=== PATIENT | female | born 1950 | race Caucasian/White ===

== ENCOUNTER → 2017-09-26 14:12 | Day surgery (SDC) | payer MEDICARE, MEDICAID, SELFPAY ==
--- NOTE | 2017-09-26 | PATH_ITS ---
[facility] Accession Number: [id number] . 01 Material submitted: . PART A: SUB-MUCOSAL MASS ASCENDING COLON PART B: SUB-MUCOSAL LESION AT 60CM PART C: POLYP AT 30CM . 02 Diagnosis: A. Ascending Colon, Biopsy: Sessile serrated adenoma. . B. Colon at 60 cm, Biopsy: Hyperplastic polyp. . C. Colon Polyp at 30 cm: Tubulovillous adenoma. MRV/09/30/2017 . 02 Electronically signed: . Chaim Montana MD, PhD, Pathologist NPI- [id number] . 01 Gross description: . Received are three formalin-filled containers, each labeled with the patient's name: . A. In a container labeled submucosal mass ascending colon, the specimen consists of three less than 0.1 cm to 0.3 cm portions of tissue, entirely submitted in cassette A. B. In a container labeled submucosal lesion at 60 cm, the specimen consists of two 0.2-0.3 cm portions of tissue, entirely submitted in cassette B. C. In a container labeled polyp at 30 cm, the specimen consists of a 0.6 x 0.6 x 1.2 cm portion of tissue, which is bisected and totally submitted in cassette C. ([id number]) /FRR . 02 Pathologist provided ICD-10: D12.2, D12.6, K63.5 . 02 CPT . 197027, 388482, [id number] Performed at: 01 [facility] [address] [facility], [place], [place] [id number] MD Feliciano Jones MD Phone: [phone] Performed at: 02 [facility] [address] [place] [id number] MD Antony Hopkins MD Phone: [phone]
[2017-09-26 14:15] VITALS: BP 113/74; PULSE 95; RESP 16; TEMP 36.3; O2SAT 97
[2017-09-26] MEDS: SODIUM CHLORIDE 0.9% 1,000 ML 200 ML IV (14:45)
--- NOTE | 2017-09-26 15:30 | PM.HP.1 ---
History of Present Illness Chief complaint: [id number] Narrative: Jeaneth Dixon is a 66 year old female She is here for screening colonoscopy. She has never had a screening colonoscopy. No family history colon cancer. [facility] Surgical History History of third molar tooth extraction Meds Home Medications Medication Instructions Recorded Confirmed Type GABAdone 1 mg PO QDAY 09/26/17 09/26/17 History Generic Name Dose Route Start Last Admin Trade Name Freq PRN Reason Stop Dose Admin Flumazenil 0.2 mg 09/25/17 17:11 Romazicon IV PRN PRN Benzodiazepine Reversal Sodium Chloride 1,000 mls @ 200 mls/hr 09/25/17 17:15 Normal Saline 0.9% IV CONT LUCIUS Naloxone HCl 0.2 mg 09/25/17 17:11 Narcan IV Q2MIN PRN Opiate Reversal Allergies Allergy/AdvReac Type Severity Reaction Status Date / Time duloxetine [From CYMBALTA] AdvReac Severe PANIC Verified 09/26/17 14:58 ATTACK AND HIGH ANXIETY Review of Systems Review of Systems All systems reviewed & are unremarkable except as noted in HPI and below Musculoskeletal Comments: Spinal arthritis Exam Vital Signs (past 8 hours): Vital Signs - 8 hr 09/26/17 14:15 Temperature 97.3 F L Pulse Rate 95 H Respiratory Rate 16 Blood Pressure 113/74 Pulse Oximetry 97 Pulse Oximetry 97 Oxygen Delivery Method Room Air Narrative Exam Narrative: Operative no apparent distress lungs are clear heart regular rate and rhythm without murmur or gallop abdomen is soft nontender without masses alert and oriented x3. Assessment & Plan Plan: Plan: I have discussed the procedure and the rationale with the patient including risks of bleeding, perforation which would necessitate a major operation, failure to find remove all lesions and the potential to tattoo. They appeared to understand and wished to proceed.
--- NOTE | 2017-09-26 15:31 | PM.PREOP ---
Pre-operative Note Interval Note Pre-op Check: History & Physical exam performed today H&P completed within 30 days and has changed as indicated here:: No change ASA Class (for procedural sedation): I
--- NOTE | 2017-09-26 16:12 | PM.HP.1 ---
History of Present Illness Chief complaint: [id number] Narrative: Jeaneth Dixon is a 66 year old female [facility] Surgical History History of third molar tooth extraction Meds Home Medications Medication Instructions Recorded Confirmed Type GABAdone 1 mg PO QDAY 09/26/17 09/26/17 History Generic Name Dose Route Start Last Admin Trade Name Freq PRN Reason Stop Dose Admin Flumazenil 0.2 mg 09/25/17 17:11 Romazicon IV PRN PRN Benzodiazepine Reversal Sodium Chloride 1,000 mls @ 200 mls/hr 09/25/17 17:15 Normal Saline 0.9% IV CONT LUCIUS Naloxone HCl 0.2 mg 09/25/17 17:11 Narcan IV Q2MIN PRN Opiate Reversal Allergies Allergy/AdvReac Type Severity Reaction Status Date / Time duloxetine [From CYMBALTA] AdvReac Severe PANIC Verified 09/26/17 14:58 ATTACK AND HIGH ANXIETY Exam Vital Signs (past 8 hours): Vital Signs - 8 hr 09/26/17 14:15 Temperature 97.3 F L Pulse Rate 95 H Respiratory Rate 16 Blood Pressure 113/74 Pulse Oximetry 97 Pulse Oximetry 97 Oxygen Delivery Method Room Air
--- NOTE | 2017-09-26 16:12 | PM.OP.ENDO ---
Operative Date/Time/Diagnoses - Date of procedure: 09/26/17 Time of procedure: 16:12 Pre-op diagnosis: Screening examination. First colonoscopy in 40 years Post-op diagnosis: other (Two submucosal masses 1 at ascending colon near flexure and 1 at 60 cm. Clinically lipomas. Large polyp at 30 cm. Hot snare applied. site was tattooed.) Procedure & Clinicians Study performed: Colonoscopy with hot snare polypectomy, cold biopsy, and injection of Lynn ink Same procedure as scheduled: Yes Indications: Screening Surgeon: Jonathan Brooks Procedure Notes SCOAP/Timeout: performed Procedure in detail: The patient was placed in the left lateral decubitus position and underwent IV sedation directed by the surgeon consisting of fentanyl and Versed. Digital exam was unremarkable. The scope was inserted and advanced through the rectum into the sigmoid, descending, transverse, and ascending colon.[I saw a large polyp in the sigmoid which I decided to remove on the way out.]. The cecum was reached identified by the ileocecal valve and the appendiceal opening. The ileocecal valve was[able to be] cannulated. The terminal ileum was normal in appearance. The scope was gradually brought out. Submucosal masses which were small were found at the ascending colon at 60 cm. These were biopsied in an attempt to get deep tissue. Clinically these were lipomas. A Polyp on a stalk was found at[30 cm from the anal verge. It was removed with a hot snare and appeared to be completely removed. Did with size I injected 3 areas just distal to it with Lynn ink.. The scope ultimately was retroflexed in the rectum. The appearance was[normal except for some scarring on old hemorrhoidal disease]. The scope was removed and the patient tolerated the procedure well Scope withdrawal time: 16-1/2 minutes Sedation minutes: 30 Findings: polyp and other findings (Submucosal masses) Recommendations: Colonscopy in 5 years Plan for aftercare: Follow-up by letter Follow up: as needed Disposition: same day surgery
[2017-09-26] MEDS: fentaNYL 250 MCG/5 ML INJ IV (16:15)
[2017-09-26 16:18] VITALS: BP 116/71; PULSE 63; RESP 16; TEMP 36.4; O2SAT 100
--- NOTE | 2017-09-26 16:19 | P.HP_ITS ---
History of Present Illness Chief complaint: [id number] Narrative: Jeaneth Dixon is a 66 year old female [facility] Surgical History History of third molar tooth extraction Meds Home Medications Medication Instructions Recorded Confirmed Type GABAdone 1 mg PO QDAY 09/26/17 09/26/17 History Generic Name Dose Route Start Last Admin Trade Name Freq PRN Reason Stop Dose Admin Flumazenil 0.2 mg 09/25/17 17:11 Romazicon IV PRN PRN Benzodiazepine Reversal Sodium Chloride 1,000 mls @ 200 mls/hr 09/25/17 17:15 Normal Saline 0.9% IV CONT LUCIUS Naloxone HCl 0.2 mg 09/25/17 17:11 Narcan IV Q2MIN PRN Opiate Reversal Allergies Allergy/AdvReac Type Severity Reaction Status Date / Time duloxetine [From CYMBALTA] AdvReac Severe PANIC Verified 09/26/17 14:58 ATTACK AND HIGH ANXIETY Exam Vital Signs (past 8 hours): Vital Signs - 8 hr 3 09/26/17 14:15 Temperature 97.3 F L Pulse Rate 95 H Respiratory Rate 16 Blood Pressure 113/74 Pulse Oximetry 97 Pulse Oximetry 97 Oxygen Delivery Method Room Air
[2017-09-26 16:30] VITALS: BP 122/71; PULSE 71; RESP 16; TEMP 36.6; O2SAT 100
== END | disposition home or self-care (01) ==
PROVIDERS: Specialist; Family Provider Physician Assistant; PCP Physician Assistant; Visit Provider Surgery
PROC: 0DJD8ZZ Inspection of Lower Intestinal Tract, Via Natural or Artificial Opening Endoscopic (ICD-10-PCS; CPT 45378; principal; 2017-09-26 15:15)
DX: Z12.11 Encounter for screening for malignant neoplasm of colon (principal); D12.2 Benign neoplasm of ascending colon; D12.6 Benign neoplasm of colon, unspecified; K63.5 Polyp of colon
CPT/HCPCS: 45385; 45381; 45380; 88305; 99152; 99153; J3010

== ENCOUNTER → 2017-10-10 16:26 | Outpatient (CLI) | payer MEDICARE, MEDICAID, SELFPAY ==
[2017-10-10 17:38] LABS: Add Manual Diff / Slide Review NO; Basophils Percent Auto 0.4 % (0-2); Hematocrit 40.1 % (36-46); Hemoglobin 13.7 g/dL (12.0-16.0); Lymphocytes Percent Auto 41.1 % (25-40); Mean Corpuscular HGB Conc 34.2 % (30-36); Mean Corpuscular Hemoglobin 34.4 PG (26-34); Mean Corpuscular Volume 100.7 fL (80-100); Monocytes Percent Auto 11.7 % (3-14); Neutrophils Absolute Auto 2100 /uL (3000-5900); Neutrophils Percent Auto 44.8 % (50-75); Platelet Count 230 X10^3/uL (150-400); Red Blood Cell Count 3.98 X10^6/uL (4.0-5.2); Red Cell Distribution Width 12.8 % (11.6-14.8); White Blood Cell Count 4.6 X10^3/uL (4.5-11.0)
[2017-10-10 17:45] LABS: Potassium 4.5 mmol/L (3.4-5.1)
[2017-10-10 17:46] LABS: Alanine Aminotransferase 32 IU/L (9-52); Albumin 4.6 g/dL (3.5-5.0); Albumin Globulin Ratio 1.4 (1.0-2.8); Alkaline Phosphatase 58 U/L (38-126); Aspartate Aminotransferase 30 IU/L (14-36); Bilirubin Total 0.4 mg/dL (0.2-1.3); Calcium 9.7 mg/dL (8.4-10.2); Estimated Glomerular Filt Rate > 60.0 mL/min (>60); Globulin 3.2 g/dL (1.7-4.1); Glucose 86 mg/dL (80-110); HEMOLYSIS < 15 (0-50); Sodium 142 mmol/L (137-145); Total Protein 7.8 g/dL (6.3-8.2)
[2017-10-10 18:02] LABS: Free T3, Triiodothyronine Free 3.53 pg/mL (2.77-5.27); Free T4, Direct Thyroxine 1.13 ng/dL (0.78-2.19)
[2017-10-10 18:37] LABS: Vitamin B12 619 pg/mL (239-931)
[2017-10-10 18:42] LABS: Vitamin D 25 Hydroxy (D3) 35.8 ng/mL (30.0-100.0)
[2017-10-12 16:41] LABS: Thyroid Peroxidase Antibodies 1 IU/mL (< 9)
== END ==
PROVIDERS: Family Provider Physician Assistant; PCP Physician Assistant; Visit Provider Physician Assistant
DX: M54.5 Low back pain (principal); G89.29 Other chronic pain; M15.9 Polyosteoarthritis, unspecified; F32.9 Major depressive disorder, single episode, unspecified; R53.83 Other fatigue; M79.7 Fibromyalgia
CPT/HCPCS: 36415; 80053; 82306; 82607; 83525; 84439; 84443; 84481; 85025; 86376

== ENCOUNTER → 2019-06-05 16:45 | Outpatient (CLI) | payer MEDICARE, MEDICAID, SELFPAY ==
--- NOTE | 2019-06-05 16:50 | DI.RAD.S_ITS ---
PROCEDURE: XR HIP W PEL IF DONE LT 2V INDICATIONS: L hip pain TECHNIQUE: AP pelvis with lateral view(s) of the left hip. COMPARISON: None. FINDINGS: Bones: No fractures or dislocations. Pelvic ring appears intact. No suspicious bony lesions. Soft tissues: The visualized bowel gas pattern is normal. No suspicious soft tissue calcifications. IMPRESSION: Asymmetric hip joint osteoarthritis is present, mild to moderate on the right and mild on the left. No trauma found. Dictated by: Erik Herron M.D. on 06/05/2019 at 17:21 Approved by: Erik Herron M.D. on 06/05/2019 at 17:22
== END ==
PROVIDERS: PCP Family Medicine; Visit Provider Family Medicine
DX: M25.552 Pain in left hip (principal); M16.0 Bilateral primary osteoarthritis of hip
CPT/HCPCS: 73502

== ENCOUNTER 2019-11-20 22:30 | Emergency (ER) | payer MEDICARE, MEDICAID, SELFPAY ==
--- NOTE | 2019-11-20 22:33 | ED_ITS ---
HPI - General Adult General Chief complaint: Toxicology Problem Stated complaint: Overdose Time Seen by Provider: 11/20/19 22:33 Source: patient and EMS Mode of arrival: EMS Limitations: no limitations History of Present Illness HPI narrative: Patient is a 68-year-old female who was brought in by EMS for concerns of potential overdose. [place] the patient and other individuals were found ?passed out? in a vehicle in the parking lot. EMS reports that the casino security administered intranasal Narcan to the patient in which afterwards the patient became more arousable. Unsure if they attempted to arouse the patient prior to administering the Narcan. Was also reported that there was drug paraphernalia found in the car next to the patient. EMS reports that the patient has been talkative and somewhat angry about the situation in route here to the ER. No further treatments were administered by EMS. Patient reports that she did do meth earlier in the day but denies any other drugs. She states that she believes that she was given something in a drink that a friend made for her. Is reported by EMS that the other individuals in the car left an went into the casino prior to their arrival. Unsure if these individuals were administered Narcan. Patient has no complaints upon my evaluation. Related Data Home Medications Medication Instructions Recorded Confirmed cholecalciferol (vitamin D3) 25 1,000 unit PO DAILY 05/25/19 05/25/19 mcg (1,000 unit) capsule Previous Rx's Medication Instructions Recorded gabapentin 100 mg capsule 100 mg PO TID #90 cap 05/25/19 quetiapine 50 mg tablet 50 mg PO BEDTIME #30 tab 05/25/19 escitalopram oxalate 20 mg tablet 20 mg PO DAILY #90 tab 11/04/19 Allergies Allergy/AdvReac Type Severity Reaction Status Date / Time duloxetine [From CYMBALTA] AdvReac Severe PANIC Verified 11/20/19 22:35 ATTACK AND HIGH ANXIETY Review of Systems Constitutional Constitutional: Denies fever(s) and Denies headache(s) ENT Ears, Nose, Mouth, and Throat: Denies headache(s) Cardiovascular Cardiovascular: Denies chest pain and Denies dyspnea Respiratory Respiratory: Denies dyspnea Gastrointestinal Gastrointestinal: Denies abdominal pain, Denies nausea and Denies vomiting Integumentary/Breasts Skin/Breast: Denies lesions and Denies rash Neurologic Neurologic: Denies abnormal speech and Denies headache(s) Hematologic/Lymphatic Hematologic/Lymphatic: Denies easy bleeding and Denies easy bruising Patient History Medical History Cervical spine disease (Chronic 2009) Chickenpox (Resolved 1953) Chronic back pain (Chronic 2010) Depression (Chronic 2010) Osteoarthritis (Chronic Unknown) Plantar warts (Resolved ~2007) Stenosis of lumbosacral spine (Chronic Unknown) Uncomplicated opioid dependence (Chronic Unknown) Surgical History History of third molar tooth extraction Family History (Updated 02/04/18 @ 11:35 by Corry Hurt LPN) Family/Other Adopted Social History Smoking Status: Former smoker alcohol intake: former Smoking Status: Former smoker (e cigarettes) Exam Initial Vital Signs Initial Vital Signs: Vital Signs Temperature 97.9 F 11/20/19 22:35 Pulse Rate 80 11/20/19 22:35 Respiratory Rate 20 11/20/19 22:35 Blood Pressure 137/83 11/20/19 22:35 Pulse Oximetry 100 11/20/19 22:35 Const General: cooperative, comfortable, well developed and well groomed Limitations: mental status not altered HENMT Head: normal to inspection and normocephalic Resp Effort & Inspection: normal respiratory effort Auscultation: clear to auscultation bilaterally Cardio Rate: regular rate Rhythm: regular rhythm Skin Lesions: no lesions Rashes: no rashes Neuro General: patient alert, patient awake and patient oriented x3 Cognition: normal cognition Speech: speech normal Extrem General: normal to inspection and capillary refill normal Psych Appearance: grossly normal and well kempt Scores GCS [place] coma scale eye opening: Spontaneous Ade coma scale verbal response: Orientated [place] coma scale motor response: Obey commands Ade coma scale total score: 15 Course Vital Signs Vital signs: Vital Signs - 8 hr 11/20/19 22:35 Temperature 97.9 F Pulse Rate 80 Respiratory Rate 20 Blood Pressure 137/83 Pulse Oximetry 100 Medical Decision Making MDM Narrative Medical decision making narrative: Patient arrived alert and oriented x3. GCS of 15. Stated that she did smoke meth earlier today but denies doing any sort of illicit substances this evening. During her stay in the emergency department patient had no issues of altered mental status. No desaturations. Patient did not have her cell phone with her. Did not have her keys. We did call her a cab. She was instructed that she should not drive for the next 24 hours. I feel that we could hold on any blood work. Patient was given return precautions and follow-up instructions. They expressed understanding and agreement. Discharge Plan Departure Patient Disposition: Home Clinical Impression: Drug abuse Instructions: DI for Drug Abuse and Drug Addiction Activity Restrictions/Additional Instructions: No driving for the next 24 hours or in the future if you partake in any intoxicating substances. I do recommend that you contact your primary provider for a follow-up. Return to the emergency department for any new or worsening symptoms Prescriptions: No Action escitalopram oxalate 20 mg tablet 20 mg PO DAILY Qty: 90 RF: 0 cholecalciferol (vitamin D3) 1,000 unit capsule 1,000 unit PO DAILY RF: 0 quetiapine 50 mg tablet 50 mg PO BEDTIME Qty: 30 RF: 5 gabapentin 100 mg capsule 100 mg PO TID Qty: 90 RF: 5 Referrals: Naina Israel DO [Primary Care Provider] -
[2019-11-20 22:35] VITALS: BP 137/83; PULSE 80; RESP 20; TEMP 36.6; O2SAT 100; BMI 27.9
[2019-11-20 23:50] VITALS: BP 136/76; PULSE 80; RESP 18; O2SAT 99
== END 2019-11-20 23:50 | disposition home or self-care (01) ==
PROVIDERS: Emergency Provider Emergency Medicine; PCP Family Medicine
DX: F19.10 Other psychoactive substance abuse, uncomplicated (principal)
CPT/HCPCS: 99282

== ENCOUNTER 2022-01-17 18:48 | Emergency (ER) | payer MEDICARE, MEDICAID, SELFPAY ==
[2022-01-17 18:57] VITALS: BP 121/59; PULSE 95; RESP 24; TEMP 36.9; O2SAT 96; BMI 25.5
--- NOTE | 2022-01-17 19:06 | DI.RAD.S_ITS ---
PROCEDURE: XR CHEST 1V INDICATIONS: cough TECHNIQUE: One view of the chest was acquired. COMPARISON: None. FINDINGS: Surgical changes and devices: None. Lungs and pleura: Mild right greater than left bibasilar airspace opacity.. No pleural effusions or pneumothorax. Mediastinum: Mediastinal contours appear normal. Heart size is normal. Bones and chest wall: No suspicious bony lesions. Overlying soft tissues appear unremarkable. IMPRESSION: Bibasilar pneumonia. Dictated by: Caden Mackenzie M.D. on 01/17/2022 at 19:19 Approved by: Caden Mackenzie M.D. on 01/17/2022 at 19:19
--- NOTE | 2022-01-17 19:08 | ED.CHESTPAIN ---
HPI - Chest Pain General Chief Complaint: Upper Respiratory Symptoms Stated Complaint: SOB, Head pains Time Seen by Provider: 01/17/22 19:06 Source: patient Mode of arrival: Ambulatory Limitations: no limitations History of Present Illness HPI narrative: 71-year-old female smoker presents at the request of the walk-in clinic for evaluation of 3 days of increasing cough productive of sputum, fatigue and shortness of breath. She states that she gets short of breath with exertion and starts to cough at times develops chest pressure associated with this. She denies any exertional intolerance, orthopnea or weight gain. She is had no fever but does admit to some chills. She denies any history of blood clot, recent travel or known cancer. She denies nausea, vomiting or diarrhea. She has no medication or dietary change. Related Data Home Medications Medication Instructions Recorded Confirmed cholecalciferol (vitamin D3) 25 1,000 unit PO DAILY 05/25/19 05/25/19 mcg (1,000 unit) capsule Previous Rx's Medication Instructions Recorded gabapentin 100 mg capsule 100 mg PO TID #90 caps 05/25/19 quetiapine 50 mg tablet 50 mg PO BEDTIME #30 tabs 05/25/19 escitalopram oxalate 20 mg tablet 20 mg PO DAILY #90 tabs 11/04/19 amoxicillin 875 mg-potassium 1 tab PO Q12H #20 tabs 01/17/22 clavulanate 125 mg tablet Allergies Allergy/AdvReac Type Severity Reaction Status Date / Time duloxetine [From CYMBALTA] AdvReac Severe PANIC Verified 01/17/22 19:01 ATTACK AND HIGH ANXIETY Review of Systems Review of Systems Narrative: GENERAL: Denies chills, fatigue, malaise, fever, sweats. HEENT: Denies sinus pain, ear pain, sore throat, difficulty swallowing, dizziness. RESPIRATORY: see HP CARDIOVASCULAR: see HPI GASTROINTESTINAL: Denies nausea, vomiting, abdominal pain, diarrhea, constipation, melena. : Denies dysuria, frequency, incontinence, hematuria, urinary retention. MUSCULOSKELETAL: denies weakness, joint pain, or bony pain SKIN: Denies rash, skin lesions, or other NEUROLOGIC: Denies weakness, headache, numbness, change in speech, confusion, seizures, incoordination. PSYCHIATRIC: No concerning psychosocial issues. 12 point review of systems is negative except for those stated above Patient History Medical History Cervical spine disease (2010) Chickenpox (1954) Chronic back pain (2010) Depression (2010) Osteoarthritis (Unknown) Plantar warts (~2008) Shortness of breath Stenosis of lumbosacral spine (Unknown) Uncomplicated opioid dependence (Unknown) Surgical History History of third molar tooth extraction Family History Family/Other Adopted Social History Smoking Status: Current every day smoker alcohol intake: former Smoking Status: Current every day smoker tobacco type: cigarettes alcohol intake frequency: a few times a week Alcohol type: beer Substance Use Type: methamphetamine Exam Narrative Exam Narrative: GENERAL: [71] year old patient appears stated age. Well-developed patient, in mild distress. HEAD: Atraumatic. Normocephalic. EYES: Pupils equal round and reactive. Extraocular motions intact. No scleral icterus. No injection or drainage. ENT: Nose without bleeding, purulent drainage. Throat without erythema, tonsillar hypertrophy or exudate. Airway patent. NECK: Trachea midline. Non tender CARDIOVASCULAR: Regular rate and rhythm without murmurs, gallops, or rubs. RESPIRATORY:Decreased breath sounds bilaterally with wheezes in all franco GASTROINTESTINAL: Abdomen soft, non-tender, nondistended. EXTREMITIES: No edema or joint tenderness. BACK: Nontender without deformity or crepitance. No flank tenderness. NEURO: AOx3. SKIN: No rash or erythema of visible areas Initial Vital Signs Initial Vital Signs: Vital Signs Temperature 98.5 F 01/17/22 18:57 Pulse Rate 95 H 01/17/22 18:57 Respiratory Rate 24 01/17/22 18:57 Blood Pressure 121/59 L 01/17/22 18:57 Pulse Oximetry 96 01/17/22 18:57 Oxygen Delivery Method 01/17/22 18:57 Course Orders Ordered: Discontinued Medications Albuterol/Ipratropium (Albuterol/Ipratropium 3 Ml Ampul) 3 ml INH NOW ONE Stop: 01/17/22 19:07 Amoxicillin/Clavulanate Potassium (Amoxicillin/Clav 875/125 Mg) 1 tab PO NOW ONE Stop: 01/17/22 20:09 Aspirin (Aspirin 81 Mg Chew Tab) 324 mg PO NOW ONE Stop: 01/17/22 19:07 Sodium Chloride (Normal Saline 0.9%) 1,000 mls @ 150 mls/hr IV CONT LUCIUS Ceftriaxone Sodium 2,000 mg/ (Sodium Chloride) 100 mls @ 200 mls/hr IV NOW ONE Stop: 01/17/22 19:28 Methylprednisolone (Methylprednisolone 125 Mg/2 Ml Vial) 125 mg IV NOW ONE Stop: 01/17/22 19:07 Vital Signs Vital signs: Vital Signs - 8 hr 01/17/22 18:57 Temperature 98.5 F Pulse Rate 95 H Respiratory Rate 24 Blood Pressure 121/59 L Pulse Oximetry 96 Oxygen Delivery Method Room Air MDM - Chest Pain Lab Data Result diagrams: 01/17/22 19:45 01/17/22 19:45 Labs: Lab Results 01/17/22 01/17/22 01/17/22 Range/Units 19:04 19:45 19:45 WBC 15.9 H (4.5-11.0) X10^3/uL RBC 3.14 L (4.0-5.2) X10^6/uL Hgb 10.8 L (12.0-16.0) g/dL Hct 31.7 L (36-46) % MCV 101.1 H (80-100) fL MCH 34.3 H (26-34) PG MCHC 33.9 (30-36) % RDW 13.5 (11.6-14.8) % Plt Count 339 (150-400) X10^3/uL Neut % (Auto) 67.9 (50-75) % Lymph % (Auto) 19.9 L (25-40) % [place] % (Auto) 11.0 (3-14) % Eos % (Auto) 0.9 L (2-4) % Baso % (Auto) 0.3 (0-2) % Neut # (Auto) 63337 H (7364-2069) /uL Lymph # (Auto) 3200 (6431-5730) /uL [place] # (Auto) 1800 H (0-900) /uL Eos # (Auto) 100 (0-450) /uL Baso # (Auto) 100 (0-100) /uL PT 12.5 (10.1-12.7) SECONDS INR 1.1 (0.9-1.3) APTT 26 (26-36) SECONDS D-Dimer 1558 H (<500) ng/ml Sodium (137-145) mmol/L Potassium (3.4-5.1) mmol/L Chloride (98-107) mmol/L Carbon Dioxide (22-32) mmol/L BUN (7-17) mg/dL Creatinine (0.52-1.04) mg/dL Estimated GFR (>60) mL/min BUN/Creatinine Ratio (6-22) Glucose (80-110) mg/dL Calcium (8.4-10.2) mg/dL Total Bilirubin (0.2-1.3) mg/dL AST (14-36) IU/L ALT (<35) IU/L Alkaline Phosphatase (38-126) U/L Total Creatine Kinase (30-135) U/L CK-MB (CK-2) CK-MB (CK-2) Rel Index Troponin I (0.01-0.034) ng/mL NT-Pro-B Natriuret Pep (<125) pg/mL Total Protein (6.3-8.2) g/dL Albumin (3.5-5.0) g/dL Globulin (1.7-4.1) g/dL Albumin/Globulin Ratio (1.0-2.8) Lipase (23-300) U/L Procalcitonin (<0.5) ng/mL SARS-CoV-2 (PCR) Negative (Negative) 01/17/22 Range/Units 19:45 WBC (4.5-11.0) X10^3/uL RBC (4.0-5.2) X10^6/uL Hgb (12.0-16.0) g/dL Hct (36-46) % MCV (80-100) fL MCH (26-34) PG MCHC (30-36) % RDW (11.6-14.8) % Plt Count (150-400) X10^3/uL Neut % (Auto) (50-75) % Lymph % (Auto) (25-40) % [place] % (Auto) (3-14) % Eos % (Auto) (2-4) % Baso % (Auto) (0-2) % Neut # (Auto) (6082-0328) /uL Lymph # (Auto) (5146-5540) /uL [place] # (Auto) (0-900) /uL Eos # (Auto) (0-450) /uL Baso # (Auto) (0-100) /uL PT (10.1-12.7) SECONDS INR (0.9-1.3) APTT (26-36) SECONDS D-Dimer (<500) ng/ml Sodium 139 (137-145) mmol/L Potassium 3.3 L (3.4-5.1) mmol/L Chloride 101 (98-107) mmol/L Carbon Dioxide 29 (22-32) mmol/L BUN 13 (7-17) mg/dL Creatinine 0.52 (0.52-1.04) mg/dL Estimated GFR > 60 (>60) mL/min BUN/Creatinine Ratio 25.0 H (6-22) Glucose 144 H (80-110) mg/dL Calcium 9.1 (8.4-10.2) mg/dL Total Bilirubin 0.6 (0.2-1.3) mg/dL AST 42 H (14-36) IU/L ALT 49 H (<35) IU/L Alkaline Phosphatase 227 H (38-126) U/L Total Creatine Kinase 57 (30-135) U/L CK-MB (CK-2) TNP CK-MB (CK-2) Rel Index TNP Troponin I < 0.012 (0.01-0.034) ng/mL NT-Pro-B Natriuret Pep 312 H (<125) pg/mL Total Protein 8.0 (6.3-8.2) g/dL Albumin 3.9 (3.5-5.0) g/dL Globulin 4.1 (1.7-4.1) g/dL Albumin/Globulin Ratio 1.0 (1.0-2.8) Lipase 34 (23-300) U/L Procalcitonin 0.45 (<0.5) ng/mL SARS-CoV-2 (PCR) (Negative) Imaging Data Chest x-ray: Radiologist's Impression: Jeaneth Dixon??71??F??1950 ? Allergy/Adv: duloxetine Close Chest X-Ray (Signed) Caden Mackenzie - 01/17/22 Hip X-Ray (Signed) GopalErik - 06/05/19 Telemetry Strips 09/26/17 Launch?[address] [address] XRay Report Signed Patient: Jeaneth Dixon MR#: [id number] : 1950 Acct:[id number] Age/Sex: 71 / F Date of Service: 01/17/22 Loc: ED Accession Number: [id number] ?? Procedure: XR chest 1V Ordering Provider: João Robles D.O. PROCEDURE:? XR CHEST 1V ? INDICATIONS:? cough ? TECHNIQUE:? One view of the chest was acquired.? ? COMPARISON:? None. ? FINDINGS:? ? Surgical changes and devices:? None.? ? Lungs and pleura:? Mild right greater than left bibasilar airspace opacity..? No pleural effusions or pneumothorax.? ? Mediastinum:? Mediastinal contours appear normal.? Heart size is normal.? ? Bones and chest wall:? No suspicious bony lesions.? Overlying soft tissues appear unremarkable.? ? IMPRESSION:? Bibasilar pneumonia. ? ? Dictated by: Caden Mackenzie M.D. on 01/17/2022 at 19:19 ? ? Approved by: Caden Mackenzie M.D. on 01/17/2022 at 19:19 ? ECG Data Interpretation: [1924] EKG is normal sinus rhythm rate [94 ] and free of any signs of ischemia or ectopy. No ST segmental elevation or depression. No T wave inversions MDM Narrative Medical decision making narrative: Patient very much wants to leave, she requests no more attempts at an IV at this time. She is awake, alert and oriented and has the capacity to make her own decisions. She understands that we do not have blood work back yet and is unclear if there will be any abnormalities that could take us down a different path. She understands the risks and benefits and prefers to leave. She understands that she may return immediately for any change in how she is feeling. Discharge Plan Departure Patient Disposition: Home Clinical Impression: Pneumonia of both lungs Instructions: DI for Pneumonia -- Adult Activity Restrictions/Additional Instructions: *You have been diagnosed with [bilateral pneumonia ] *What to do: *Please continue to take your regular medications as directed. [x ] New medication prescriptions sent to your pharmacy: [ [facility]] [ ] New medication written as a paper prescription [ ] No new medications given *Please follow up with your primary care provider in 2-3 days, call for an appointment. Let them know you were seen in the Emergency Department and that we ask that you be seen in follow up. We will electronically transmit a record of today's note if your PCP is in our system *If you do not have a primary care provider please contact the [facility] Resource line at [phone]. They will ask some questions about your medical history and help get you set up with a doctor in the community. *Return to Emergency Department if you should have any new, worsening or concerning symptoms, such as [fever greater than 101 F, shaking chills, worsening pain, persistent vomiting or other bothersome symptoms] Prescriptions: New amoxicillin-pot clavulanate 875-125 mg tablet 1 tab PO Q12H Qty: 20 0RF No Action escitalopram oxalate 20 mg tablet 20 mg PO DAILY Qty: 90 0RF cholecalciferol (vitamin D3) 1,000 unit capsule 1,000 unit PO DAILY quetiapine 50 mg tablet 50 mg PO BEDTIME Qty: 30 5RF gabapentin 100 mg capsule 100 mg PO TID Qty: 90 5RF Referrals: Naina Israel DO [Primary Care Provider] - Visit Report Forms: Patient Portal/API
[2022-01-17 19:36] LABS: COVID19 -Nasal RAPID Negative (Negative)
[2022-01-17 20:04] LABS: Add Manual Diff / Slide Review NO; Basophils Absolute Auto 100 /uL (0-100); Basophils Percent Auto 0.3 % (0-2); Eosinophils Absolute Auto 100 /uL (0-450); Eosinophils Percent Auto 0.9 % (2-4); Hematocrit 31.7 % (36-46); Hemoglobin 10.8 g/dL (12.0-16.0); Lymphocytes Absolute Auto 3200 /uL (1100-4500); Lymphocytes Percent Auto 19.9 % (25-40); Mean Corpuscular HGB Conc 33.9 % (30-36); Mean Corpuscular Hemoglobin 34.3 PG (26-34); Mean Corpuscular Volume 101.1 fL (80-100); Monocytes Absolute Auto 1800 /uL (0-900); Neutrophils Absolute Auto 10800 /uL (1500-7000); Neutrophils Percent Auto 67.9 % (50-75); Platelet Count 339 X10^3/uL (150-400); Red Blood Cell Count 3.14 X10^6/uL (4.0-5.2); Red Cell Distribution Width 13.5 % (11.6-14.8); White Blood Cell Count 15.9 X10^3/uL (4.5-11.0)
[2022-01-17 20:12] LABS: INR 1.1 (0.9-1.3); Prothrombin Time 12.5 SECONDS (10.1-12.7)
[2022-01-17 20:14] LABS: D Dimer 1558 ng/ml (<500)
[2022-01-17 20:15] LABS: PTT Partial Thromboplastin Tim 26 SECONDS (26-36)
[2022-01-17 20:23] LABS: Alanine Aminotransferase 49 IU/L (<35); Albumin 3.9 g/dL (3.5-5.0); Alkaline Phosphatase 227 U/L (38-126); Aspartate Aminotransferase 42 IU/L (14-36); Bilirubin Total 0.6 mg/dL (0.2-1.3); Blood Urea Nitrogen 13 mg/dL (7-17); Calcium 9.1 mg/dL (8.4-10.2); Carbon Dioxide 29 mmol/L (22-32); Chloride 101 mmol/L (98-107); Creatine Kinase 57 U/L (30-135); Estimated Glomerular Filt Rate > 60 mL/min (>60); Globulin 4.1 g/dL (1.7-4.1); Glucose 144 mg/dL (80-110); HEMOLYSIS < 15 (0-50); Lipase 34 U/L (23-300); Potassium 3.3 mmol/L (3.4-5.1); Sodium 139 mmol/L (137-145)
[2022-01-17 20:35] LABS: NT-proBNP (BNP-Adult 18+) 312 pg/mL (<125); Troponin I < 0.012 ng/mL (0.01-0.034)
[2022-01-17 20:40] LABS: Procalcitonin 0.45 ng/mL (<0.5)
== END 2022-01-17 20:12 | disposition home or self-care (01) ==
PROVIDERS: Emergency Provider Emergency Medicine; PCP Family Medicine
DX: J18.9 Pneumonia, unspecified organism (principal); Z20.822 Contact with and (suspected) exposure to COVID-19
CPT/HCPCS: 71045; 80053; 82550; 83690; 83880; 84145; 84484; 85025; 85379; 85610; 85730; 87635; 93005; 99281; 99284; C9803

== ENCOUNTER 2022-01-19 19:09 | Emergency (ER) | payer MEDICARE, MEDICAID, SELFPAY ==
[2022-01-19 19:20] VITALS: BP 161/76; PULSE 109; RESP 18; TEMP 36.2; O2SAT 93
== END 2022-01-19 22:36 | disposition left against medical advice (07) ==
PROVIDERS: Emergency Provider Emergency Medicine; PCP Family Medicine
CPT/HCPCS: 99281

== ENCOUNTER 2022-01-21 13:15 | Emergency (ER) | payer MEDICARE, MEDICAID, SELFPAY ==
[2022-01-21] VITALS (8 sets, daily range): BP systolic 142–146; BP diastolic 76–79; PULSE 82–91; RESP 18–33; TEMP 36.5; O2SAT 92–96
--- NOTE | 2022-01-21 14:19 | DI.CT.S_ITS ---
PROCEDURE: CT ANGIO CHEST PE PROTOCOL INDICATIONS: concern for PE, + pna TECHNIQUE: After the administration of intravenous contrast, 2 mm thick sections acquired from the pulmonary apices to the posterior costophrenic angles. 3-dimensional maximum intensity projection (MIP) coronal and sagittal reformats were then acquired through the thorax. For radiation dose reduction, the following was used: automated exposure control, adjustment of mA and/or kV according to patient size. COMPARISON: None. FINDINGS: Image quality: Excellent. Pulmonary arteries: Pulmonary arteries are normal in size, and demonstrate no intraluminal filling defects to suggest central pulmonary embolism. Lungs and pleura: Numerous ground-glass opacities in a peripheral distribution most prominent within the bibasilar regions with tree-in-bud nodularity. No pleural effusions or pneumothorax. Central airways are clear with mild central bronchiectasis. Mediastinum: Heart size is normal, without pericardial effusion. Prominent central mediastinal lymph nodes. No left hilar lymphadenopathy. Thoracic aorta is normal in caliber and enhancement. Esophagus is normal in caliber, with small hiatal hernia. Bones and chest wall: No suspicious bony lesions. Ribs and thoracic spine appear intact throughout. Thyroid gland is unremarkable. No axillary or supraclavicular adenopathy. Abdomen: Visualized upper abdominal solid organs appear normal in the early arterial phase of enhancement. IMPRESSION: 1. No pulmonary embolus. 2. Multifocal ground-glass opacities concerning for atypical infection. Dictated by: Bertram Gibbs M.D. on 01/21/2022 at 14:18 Approved by: Bertram Gibbs M.D. on 01/21/2022 at 14:23
[2022-01-21 14:37] LABS: Add Manual Diff / Slide Review NO; Basophils Absolute Auto 100 /uL (0-100); Basophils Percent Auto 0.5 % (0-2); Eosinophils Absolute Auto 300 /uL (0-450); Eosinophils Percent Auto 2.3 % (2-4); Hematocrit 28.6 % (36-46); Hemoglobin 10.1 g/dL (12.0-16.0); Lymphocytes Absolute Auto 3400 /uL (1100-4500); Lymphocytes Percent Auto 30.8 % (25-40); Mean Corpuscular HGB Conc 35.3 % (30-36); Mean Corpuscular Hemoglobin 35.1 PG (26-34); Mean Corpuscular Volume 99.5 fL (80-100); Monocytes Absolute Auto 1000 /uL (0-900); Monocytes Percent Auto 9.5 % (3-14); Neutrophils Absolute Auto 6200 /uL (1500-7000); Neutrophils Percent Auto 56.9 % (50-75); Platelet Count 440 X10^3/uL (150-400); Red Blood Cell Count 2.87 X10^6/uL (4.0-5.2); Red Cell Distribution Width 13.5 % (11.6-14.8)
[2022-01-21 14:45] LABS: Alanine Aminotransferase 35 IU/L (<35); Albumin 3.4 g/dL (3.5-5.0); Albumin Globulin Ratio 0.9 (1.0-2.8); Alkaline Phosphatase 295 U/L (38-126); Aspartate Aminotransferase 31 IU/L (14-36); BUN Creatinine Ratio 20.4 (6-22); Bilirubin Total 0.3 mg/dL (0.2-1.3); Blood Urea Nitrogen 11 mg/dL (7-17); Calcium 8.7 mg/dL (8.4-10.2); Carbon Dioxide 33 mmol/L (22-32); Chloride 102 mmol/L (98-107); Creatine Kinase 46 U/L (30-135); Estimated Glomerular Filt Rate > 60 mL/min (>60); Glucose 120 mg/dL (80-110); HEMOLYSIS < 15 (0-50); Lipase 29 U/L (23-300); Potassium 3.2 mmol/L (3.4-5.1); Sodium 138 mmol/L (137-145); Total Protein 7.4 g/dL (6.3-8.2)
[2022-01-21 14:57] LABS: Troponin I < 0.012 ng/mL (0.01-0.034)
[2022-01-21 14:59] LABS: NT-proBNP (BNP-Adult 18+) 278 pg/mL (<125)
--- NOTE | 2022-01-21 15:31 | ED_ITS ---
HPI - Chest Pain General Chief Complaint: Chest Pain Stated Complaint: poss. blood clot Dr. Velazquez said to come back Time Seen by Provider: 01/21/22 14:17 Source: patient Mode of arrival: Ambulatory Limitations: no limitations History of Present Illness HPI narrative: This is a 71-year-old female with history of tobacco use who represents for rule out blood clot. Patient was seen on 01/17/2022 sent from the walk-in clinic was found to have pneumonia on chest x-ray but D-dimer was quite elevated. Patient chose to leave before CT scan to rule out PE was performed. She states since then she is continued to have a little bit of chest discomfort, shortness of breath that has been about the same without any worsening green productive sputum. She denies fevers. No diaphoresis. No nausea or vomiting. No new swelling in her extremities. Patient denies exertional dyspnea, orthopnea or weight gain. She states that she takes gabapentin, escitalopram and as needed Seroquel for sleep. Denies any prior surgeries. States her only allergies Cymbalta she smokes half pack per day, occasional alcohol, states she uses THC. Patient denies other illicit although has visit from 2019 that notes patient endorses methamphetamine use at that time. Patient states she did not fill her prescription for antibiotics yet. The pharmacy that she would normally use is closed today and she would be unable to pick it up until Saturday or Saturday so prescription was sent to a different local pharmacy that is open today for the next several hours. Related Data Home Medications Medication Instructions Recorded Confirmed cholecalciferol (vitamin D3) 25 1,000 unit PO DAILY 05/25/19 05/25/19 mcg (1,000 unit) capsule Previous Rx's Medication Instructions Recorded gabapentin 100 mg capsule 100 mg PO TID #90 caps 05/25/19 quetiapine 50 mg tablet 50 mg PO BEDTIME #30 tabs 05/25/19 escitalopram oxalate 20 mg tablet 20 mg PO DAILY #90 tabs 11/04/19 amoxicillin 875 mg-potassium 1 tab PO BID #20 tabs 01/21/22 clavulanate 125 mg tablet Allergies Allergy/AdvReac Type Severity Reaction Status Date / Time duloxetine [From CYMBALTA] AdvReac Severe PANIC Verified 01/17/22 19:01 ATTACK AND HIGH ANXIETY Review of Systems Review of Systems ROS Unobtainable: All systems reviewed & are unremarkable except as noted in HPI and below Patient History Medical History Cervical spine disease (2010) Chickenpox (1954) Chronic back pain (2010) Depression (2010) Osteoarthritis (Unknown) Plantar warts (~2008) Shortness of breath Stenosis of lumbosacral spine (Unknown) Uncomplicated opioid dependence (Unknown) Surgical History History of third molar tooth extraction Family History Family/Other Adopted Social History Smoking Status: Current every day smoker alcohol intake: former Smoking Status: Current every day smoker tobacco type: cigarettes alcohol intake frequency: a few times a week Alcohol type: beer Substance Use Type: methamphetamine Exam Narrative Exam Narrative: GENERAL: Alert and oriented x three, female in mild distress. HEENT: Head normocephalic, atraumatic, EOMI, pupils reactive, face symmetric, moist mucous membranes NECK: Supple, full range of motion CARDIOVASCULAR: Regular rate and rhythm without murmurs, rubs or gallops. No JVD. No swelling bilateral lower extremity. RESPIRATORY: Breath sounds equal bilaterally, no wheezes rales or rhonchi. No tachypnea accessory muscle use. ABDOMEN: Soft, nontender. Normoactive bowel sounds all 4 quadrants. No guarding or rebound, rigidity, no mass : No CVA tenderness EXTREMITIES: Normal range of motion, no clubbing or edema. Neurovascularly intact NEUROLOGICAL: Cranial nerves II through XII grossly intact. Moving all extremities SKIN: Warm, dry, no petechiae, no rashes or lesions. Initial Vital Signs Initial Vital Signs: Vital Signs Temperature 97.7 F 01/21/22 13:20 Pulse Rate 91 H 01/21/22 13:20 Respiratory Rate 20 01/21/22 13:20 Blood Pressure 144/79 H 01/21/22 13:20 Pulse Oximetry 95 01/21/22 13:20 Oxygen Delivery Method 01/21/22 13:20 Course Orders Ordered: ED Orders 01/21/22 14:18 EKG-12 Lead Stat 01/21/22 14:19 CT angio chest PE protocol Stat 01/21/22 14:26 Complete Blood Count AUTO DIFF Stat Comprehensive Metabolic Panel Stat Lipase Stat NT-proBNP (BNP-Adult 18+) Stat Troponin & CK Cardiac Panel Stat Vital Signs Vital signs: Vital Signs - 8 hr 01/21/22 13:20 01/21/22 14:27 01/21/22 14:28 Temperature 97.7 F Pulse Rate 91 H 82 Respiratory Rate 20 18 Blood Pressure 144/79 H 142/76 H Pulse Oximetry 95 95 Oxygen Delivery Method Room Air 01/21/22 14:28 01/21/22 14:46 01/21/22 15:00 Temperature Pulse Rate 82 90 86 Respiratory Rate 24 20 Blood Pressure Pulse Oximetry 95 94 96 Oxygen Delivery Method 01/21/22 15:30 01/21/22 16:00 01/21/22 16:20 Temperature Pulse Rate 83 82 Respiratory Rate 26 H 28 H Blood Pressure 146/79 H Pulse Oximetry 93 92 Oxygen Delivery Method 01/21/22 16:20 Temperature Pulse Rate 90 Respiratory Rate 33 H Blood Pressure Pulse Oximetry 92 Oxygen Delivery Method MDM - Chest Pain Lab Data Result diagrams: 01/21/22 14:26 01/21/22 14:26 Labs: Lab Results 01/21/22 01/21/22 01/21/22 Range/Units 14:26 14:26 14:26 WBC 11.0 (4.5-11.0) X10^3/uL RBC 2.87 L (4.0-5.2) X10^6/uL Hgb 10.1 L (12.0-16.0) g/dL Hct 28.6 L (36-46) % MCV 99.5 (80-100) fL MCH 35.1 H (26-34) PG MCHC 35.3 (30-36) % RDW 13.5 (11.6-14.8) % Plt Count 440 H (150-400) X10^3/uL Neut % (Auto) 56.9 (50-75) % Lymph % (Auto) 30.8 (25-40) % [place] % (Auto) 9.5 (3-14) % Eos % (Auto) 2.3 (2-4) % Baso % (Auto) 0.5 (0-2) % Neut # (Auto) 6200 (1374-0605) /uL Lymph # (Auto) 3400 (5704-3756) /uL [place] # (Auto) 1000 H (0-900) /uL Eos # (Auto) 300 (0-450) /uL Baso # (Auto) 100 (0-100) /uL Sodium 138 (137-145) mmol/L Potassium 3.2 L (3.4-5.1) mmol/L Chloride 102 (98-107) mmol/L Carbon Dioxide 33 H (22-32) mmol/L BUN 11 (7-17) mg/dL Creatinine 0.54 (0.52-1.04) mg/dL Estimated GFR > 60 (>60) mL/min BUN/Creatinine Ratio 20.4 (6-22) Glucose 120 H (80-110) mg/dL Calcium 8.7 (8.4-10.2) mg/dL Total Bilirubin 0.3 (0.2-1.3) mg/dL AST 31 (14-36) IU/L ALT 35 H (<35) IU/L Alkaline Phosphatase 295 H (38-126) U/L Total Creatine Kinase 46 (30-135) U/L CK-MB (CK-2) TNP CK-MB (CK-2) Rel Index TNP Troponin I < 0.012 (0.01-0.034) ng/mL NT-Pro-B Natriuret Pep 278 H (<125) pg/mL Total Protein 7.4 (6.3-8.2) g/dL Albumin 3.4 L (3.5-5.0) g/dL Globulin 4.0 (1.7-4.1) g/dL Albumin/Globulin Ratio 0.9 L (1.0-2.8) Lipase 29 (23-300) U/L Imaging Data CT scan - chest: Radiologist's Impression: Close Chest CTA (Signed) Bertram Gibbs - 01/21/22 Launch?[address] [address] [address] Scan Report Signed Patient: Jeaneth Woodall MR#: [id number] : 1950 Acct:[id number] Age/Sex: 71 / F Date of Service: 01/21/22 Loc: ED Accession Number: [id number] ?? Procedure: CT angio chest PE protocol Ordering Provider: Liudmila Veliz D.O. PROCEDURE:? CT ANGIO CHEST PE PROTOCOL ? INDICATIONS:? concern for PE, + pna ? TECHNIQUE:? After the administration of intravenous contrast, 2 mm thick sections acquired f rom the pulmonary apices to the posterior costophrenic angles.? 3-dimensional maximum intensity projection (MIP) coronal and sagittal reformats were then acquired through the thorax.? For radiation dose reduction, the following was used:? automated exposure control, adjustment of mA and/or kV according to patient size.? ? COMPARISON:? None. ? FINDINGS:? Image quality:? Excellent.? ? Pulmonary arteries:? Pulmonary arteries are normal in size, and demonstrate no intraluminal filling defects to suggest central pulmonary embolism.? ? Lungs and pleura:? Numerous ground-glass opacities in a peripheral distribution most prominent within the bibasilar regions with tree-in-bud nodularity.? No pleural effusions or pneumothorax.? Central airways are clear with mild central bronchiectasis. ? Mediastinum:? Heart size is normal, without pericardial effusion.? Prominent central mediastinal lymph nodes.? No left hilar lymphadenopathy.? Thoracic aorta is normal in caliber and enhancement.? Esophagus is normal in caliber, with small hiatal hernia.? ? Bones and chest wall:? No suspicious bony lesions.? Ribs and thoracic spine appear intact throughout.? Thyroid gland is unremarkable.? No axillary or supraclavicular adenopathy.? ? Abdomen:? Visualized upper abdominal solid organs appear normal in the early arterial phase of enhancement.? ? IMPRESSION:? 1. No pulmonary embolus.? 2. Multifocal ground-glass opacities concerning for atypical infection. ? ? Dictated by: Bertram Gibbs M.D. on 01/21/2022 at 14:18 ? ? Approved by: Bertram Gibbs M.D. on 01/21/2022 at 14:23?? ECG Data Attestation: I personally reviewed and interpreted this ECG as follows: Interpretation: Sinus rhythm RSR pattern in V1, no elevation slight depression in anterior 2 3 AVF. Patient has prior from 01/17/2022 appears similar today. Has decreased voltage in 2 3 AVF on prior EKG no obvious dynamic changes. MDM Narrative Medical decision making narrative: This is a 71-year-old female who represents for rule out blood clot. Patient was seen diagnosed with suspected pneumonia on chest x-ray, labs are reassuring at that time, labs today are reassuring with white count improving, negative troponin patient does not appear to have dynamic changes on her EKG. PE study shows no pulmonary emboli but does show persistent pneumonia. Patient notes she has not filled her antibiotics yet, they were prescribed on the but she had not picked them up and then because of the holiday weekend [facility] is closed. Will send her antibiotics to a different pharmacy that is open today she plans to start. Vital signs are appropriate here return precautions discussed. Discharge Plan Departure Patient Disposition: Home Clinical Impression: Pneumonia, Anemia Instructions: Atypical Pneumonia Activity Restrictions/Additional Instructions: Your imaging today does not show a blood clot but does show pneumonia on your had chest CT. Please please fill the antibiotic script today. It was sent to [facility] in [place]. Go ahead and start this today and take it until completed. Please return for new fevers, increasing chest pain, shortness of breath, passing out, persistent vomiting or new swelling of her extremities. Prescriptions: New amoxicillin-pot clavulanate 875-125 mg tablet 1 tab PO BID Qty: 20 0RF Discontinued amoxicillin-pot clavulanate 875-125 mg tablet 1 tab PO Q12H Qty: 20 0RF No Action escitalopram oxalate 20 mg tablet 20 mg PO DAILY Qty: 90 0RF cholecalciferol (vitamin D3) 1,000 unit capsule 1,000 unit PO DAILY quetiapine 50 mg tablet 50 mg PO BEDTIME Qty: 30 5RF gabapentin 100 mg capsule 100 mg PO TID Qty: 90 5RF Referrals: Naina Israel DO [Primary Care Provider] - Visit Report Forms: Patient Portal/API
== END 2022-01-21 16:27 | disposition home or self-care (01) ==
PROVIDERS: Emergency Provider Emergency Medicine; PCP Family Medicine
DX: J18.9 Pneumonia, unspecified organism (principal); D64.9 Anemia, unspecified; R07.9 Chest pain, unspecified
CPT/HCPCS: 36415; 71275; 80053; 82550; 83690; 83880; 84484; 85025; 93005; 93010; 99283; 99284; Q9967